=== PATIENT | male | born 1995 | race Caucasian/White ===

== ENCOUNTER 2016-07-06 18:51 | Emergency (ER) | payer MEDICAID ==
[2016-07-06] MEDS ORDERED: AZITHROMYCIN 250 MG TABLET PO STA (19:14)
[2016-07-06] MEDS ORDERED: cefTRIAXone 250 MG VIAL IM STA (19:14)
[2016-07-06] MEDS ORDERED: LIDOCAINE 2% 10 ML MDV ONE (19:15)
[2016-07-06] MEDS ORDERED: cefTRIAXone 250 MG VIAL ONE (19:15)
[2016-07-06] MEDS ORDERED: AZITHROMYCIN 250 MG TABLET PO ONE (19:15)
== END 2016-07-06 19:39 | disposition home or self-care (01) ==
DX: Z20.2 Contact with and (suspected) exposure to infections with a predominantly sexual mode of transmission (principal)
CPT/HCPCS: 81001; 87491; 87591; 96372; 99283; A9270

== ENCOUNTER 2018-04-08 18:15 | Emergency (ER) | payer SELFPAY ==
--- NOTE | 2018-04-08 21:41 | ED Physician Documentation ---
PD HPI BACK PAIN - Stated complaint Stated Complaint: LT LEG NUMBNESS - Chief complaint Chief Complaint: Back Pain - History obtained from History obtained from: Patient - History of Present Illness Timing - onset: How many days ago (2-3) Timing - duration: Days Timing - details: Gradual onset, Still present. No: Abrupt onset Location: Lower, Left Quality: Pain, Other (radiating down left posterolat thigh) Associated symptoms: No: Fever, Weakness, Numbness, Incontinent of urine Improves with: Rest Worsened by: Movement Contributing factors: Twisting. No: Lifting, Trauma Similar symptoms before: Has not had sx before Recently seen: Not recently seen Review of Systems Constitutional: reports: Fever. denies: Chills, Myalgias Nose: denies: Rhinorrhea / runny nose, Congestion Throat: denies: Sore throat Cardiac: denies: Chest pain / pressure Respiratory: denies: Cough GI: denies: Abdominal Pain, Nausea, Vomiting, Diarrhea : denies: Dysuria, Frequency, Hematuria Skin: denies: Rash Musculoskeletal: reports: Back pain. denies: Neck pain PD PAST MEDICAL HISTORY - Past Medical History Cardiovascular: None Neuro: None Musculoskeletal: None - Past Surgical History Past Surgical History: No - Present Medications Home Medications: Ambulatory Orders Medication Instructions Recorded Confirmed Dexamethasone [Decadron] 4 mg PO DAILY #5 tablet 04/08/18 Methocarbamol [Robaxin] 500 mg PO Q6H PRN #30 tablet 04/08/18 Naproxen 500 mg PO BID #20 tablet 04/08/18 Tramadol HCl 50 mg PO Q6H PRN #20 tablet 04/08/18 - Allergies Allergies/Adverse Reactions: Allergies Allergy/AdvReac Type Severity Reaction Status Date / Time No Known Drug Allergies Allergy Verified 04/08/18 18:35 - Social History Does the pt smoke?: No Smoking Status: Never smoker Does the pt drink ETOH?: Yes Does the pt have substance abuse?: No - Immunizations Immunizations are current?: Yes PD ED PE NORMAL - Vitals Vital signs reviewed: Yes - General General: Alert and oriented X 3, Well developed/nourished, Other (guarding ROM of the back.) - Cardiac Cardiac: RRR, No murmur - Respiratory Respiratory: Clear bilaterally - Abdomen Abdomen: Normal bowel sounds, Soft, Non tender, Non distended - Back Back: No CVA TTP, No spinal TTP (but is tender left lateral above the SI joint. No rash nor sores. ) - Derm Derm: Normal color, Warm and dry, No rash - Neuro Neuro: Alert and oriented X 3, No motor deficit, No sensory deficit, Other (normal knee reflexes) Results - Vitals Vitals: Oxygen O2 Source Room air PD MEDICAL DECISION MAKING - ED course Complexity details: considered differential (back pain radiating to left leg, without red flags to suggest need for imaging/testing. ), d/w patient Departure - Departure Disposition: 01 Home, Self Care Clinical Impression: Back pain Qualifiers: Back pain location: low back pain Chronicity: acute Back pain laterality: bilateral Sciatica presence: with sciatica Sciatica laterality: sciatica of left side Qualified Code(s): M54.42 - Lumbago with sciatica, left side Condition: Stable Record reviewed to determine appropriate education?: Yes Instructions: ED Low Back Pain Injury, ED Sciatica Prescriptions: Dexamethasone [Decadron] 4 mg PO DAILY #5 tablet Methocarbamol [Robaxin] 500 mg PO Q6H PRN #30 tablet PRN Reason: Spasms Naproxen 500 mg PO BID #20 tablet Tramadol HCl 50 mg PO Q6H PRN #20 tablet PRN Reason: Pain Comments: Less strenuous activity and heavy lifting if possible for several days. Gentle range of motion and stretching as well as heat to the low back to reduce stiffness after work. Use some anti-inflammatories of naproxen and Decadron as directed. Robaxin muscle relaxant twice daily for stiffness and spasms. Add Tylenol or tramadol if needed for pains. Low back pain with some inflammation or pressure on the nerves is relatively common and typically will resolve over a few weeks or so. It commonly does not resolve in a few days. Recheck if not improved over the next week or 2 however as this should be improvement along the way. Discharge Date/Time: 04/08/18 22:21
[2018-04-08] MEDS ORDERED: CHERRY SYRUP 10 ML UDC PO ONE (22:12)
[2018-04-08] MEDS: DEXAMETHASONE 10 MG/ML VIAL PO STA (22:20)
[2018-04-08] MEDS: NAPROXEN 250 MG TABLET PO STA (22:20)
[2018-04-08] MEDS: METHOCARBAMOL 500 MG TABLET PO STA (22:20)
[2018-04-08] MEDS: traMADol 50 MG TABLET PO STA (22:20)
[2018-04-08 22:21] VITALS: BP 133/76
== END 2018-04-08 22:21 | disposition home or self-care (01) ==
LOC: ED 18:15
DX: M54.42 Lumbago with sciatica, left side (principal)
CPT/HCPCS: 99283

== ENCOUNTER 2018-06-09 08:54 | Emergency (ER) | payer SELFPAY ==
[2018-06-09 09:03] VITALS: BP 143/72
[2018-06-09] MEDS ORDERED: BACITRACIN OINT TOP STA (09:31)
--- NOTE | 2018-06-09 09:34 | ED Physician Documentation ---
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 After about 1 hour he took his foot out of the boot, and washed his foot off with vinegar, followed by water. He worked yesterday in boots, but had to stop early because of discomfort in his foot. He presents now because of continued pain in his right foot. He denies history of similar symptoms in the past. Review of Systems Constitutional: denies: Fever Respiratory: denies: Dyspnea Skin: reports: Other (Chemical méndez on the right foot.) Musculoskeletal: reports: Extremity pain (Right foot.) Neurologic: denies: Focal weakness, Numbness PD PAST MEDICAL HISTORY - Past Medical History Past Medical History: No Cardiovascular: None Neuro: None Endocrine/Autoimmune: None Musculoskeletal: None - Past Surgical History Past Surgical History: No - Allergies Allergies/Adverse Reactions: Allergies Allergy/AdvReac Type Severity Reaction Status Date / Time No Known Drug Allergies Allergy Verified 04/08/18 18:35 - Social History Does the pt smoke?: No Smoking Status: Never smoker Does the pt drink ETOH?: Yes Does the pt have substance abuse?: No - Immunizations Immunizations are current?: Yes - POLST Patient has POLST: No PD ED PE NORMAL - Vitals Vital signs reviewed: Yes (Systolic hypertension initially.) - General General: Alert and oriented X 3, Well developed/nourished - HEENT HEENT: Atraumatic - Respiratory Respiratory: No respiratory distress - Extremities Extremities: Other (There are superficial second-degree méndez on the dorsal aspect of the foot, on the medial side. The largest area is about 2 cm x 1 cm in size. There are scattered smaller burn wounds in the same vicinity. There is no significant erythema or lymphangitic streaking. Distal neurovascular is intact.) - Neuro Neuro: Alert and oriented X 3, No motor deficit, No sensory deficit PD ED PE EXPANDED - Extremities Extremities: Right foot Feet visual: 1 - tenderness (superficial 2 degree méndez) Results - Vitals Vitals: Vital Signs - 24 hr 06/09/18 08:59 Temperature 36.3 C L Heart Rate 80 Respiratory 12 Rate Blood Pressure 143/72 H O2 Saturation 100 Oxygen O2 Source Room air PD MEDICAL DECISION MAKING - ED course Complexity details: considered differential, d/w patient, d/w family ED course: The patient's presentation is most consistent with superficial second-degree chemical burn to his right foot. His presentation does not suggest cellulitis. Treatment in the emergency department included application of antibiotic o intment and gauze dressing. 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 Departure - Departure Disposition: 01 Home, Self Care Clinical Impression: Burn of foot Qualifiers: Encounter type: initial encounter Laterality: right Burn degree: partial thickness (2nd degree) Qualified Code(s): T25.221A - Burn of second degree of right foot, initial encounter Condition: Stable Instructions: ED Burn D 2nd Follow-Up: [facility] [Provider Group] Comments: Keep your right foot elevated as much of the time as possible. Wash it with warm soapy water daily, and apply new antibiotic ointment. You can use ibuprofen, up to 800 mg 3 times daily for its anti-inflammatory effect. Follow-up with primary physician within 2 weeks. Call to schedule appointment. Return to the emergency department if you develop any sign of infection, or otherwise worsening symptoms. Forms: Activity restrictions
== END 2018-06-09 09:50 | disposition home or self-care (01) ==
LOC: ED 08:54
DX: T65.891A Toxic effect of other specified substances, accidental (unintentional), initial encounter (principal); T25.621A Corrosion of second degree of right foot, initial encounter; T32.0 Corrosions involving less than 10% of body surface
CPT/HCPCS: 99282; 99283; A9270

== ENCOUNTER 2021-08-23 10:05 | Emergency (ER) | payer SELFPAY ==
[2021-08-23 10:28] LABS: BILIRUBIN,URINE NEGATIVE (NEGATIVE); GLUCOSE, URINE (UA) NEGATIVE (NEGATIVE); KETONES,URINE (UA) NEGATIVE (NEGATIVE); LEUKOCYTE ESTERASE, URINE NEGATIVE (NEGATIVE); NITRITE,URINE NEGATIVE (NEGATIVE); OCCULT BLOOD,URINE NEGATIVE (NEGATIVE); PROTEIN,URINE NEGATIVE (NEGATIVE); UROBILINOGEN,URINE 0.2 (NORMAL) E.U./dL (NORMAL)
[2021-08-23 10:32] LABS: CLARITY,URINE CLEAR (CLEAR)
--- NOTE | 2021-08-23 11:59 | ED Physician Documentation ---
History of Present Illness - Stated complaint Stated Complaint: MALE ,BACK PX - Chief complaint Chief Complaint: UTI - History obtained from History obtained from: Patient - Additonal information Additional information: Patient comes emergency department chief complaint of low back pain after moving a heavy couch a few days ago. The patient states he is just been having a lot of muscular tightness and that it radiates into his left sciatic area. He denies any numbness or tingling. No weakness of his lower extremities. No difficulty controlling bowels or bladder. No dysuria or fevers. The patient as a separate complaint relates penile itching and rash at the tip. He does admit to having unprotected sex 2 nights ago. He is not sure if his partner had any STD symptoms. The patient denies any penile discharge. No lesions. No history of STDs. No other complaints at this time. Review of Systems Ten Systems: 10 systems reviewed and negative Constitutional: reports: Reviewed and negative Eyes: reports: Reviewed and negative Ears: reports: Reviewed and negative Nose: reports: Reviewed and negative Throat: reports: Reviewed and negative Cardiac: reports: Reviewed and negative Respiratory: reports: Reviewed and negative GI: reports: Reviewed and negative : reports: Reviewed and negative Skin: reports: Reviewed and negative Musculoskeletal: reports: Back pain Neurologic: reports: Reviewed and negative Psychiatric: reports: Reviewed and negative Endocrine: reports: Reviewed and negative Immunocompromised: reports: Reviewed and negative PD PAST MEDICAL HISTORY - Past Medical History Cardiovascular: None Respiratory: None Neuro: None Endocrine/Autoimmune: None GI: None : None HEENT: None Psych: None Musculoskeletal: None Derm: None - Past Surgical History Past Surgical History: No - Present Medications Home Medications: Ambulatory Orders Medication Instructions Recorded Confirmed Cyclobenzaprine [Flexeril] 10 mg PO TID PRN #20 tablet 08/23/21 - Allergies Allergies/Adverse Reactions: Allergies Allergy/AdvReac Type Severity Reaction Status Date / Time No Known Drug Allergies Allergy Verified 08/23/21 10:31 - Social History Does the pt smoke?: Yes Smoking Status: Current every day smoker Does the pt drink ETOH?: Yes ETOH Use: Beer, Liquor Does the pt have substance abuse?: Yes Substance Use and Type: Marijuana - Immunizations Immunizations are current?: Yes - POLST Patient has POLST: No PD ED PE NORMAL - Vitals Vital signs reviewed: Yes - General General: Alert and oriented X 3, No acute distress, Well developed/nourished - HEENT HEENT: Atraumatic, PERRL, EOMI, Moist mucous membranes - Neck Neck: Supple, no meningeal sign - Cardiac Cardiac: RRR, No murmur, Strong equal pulses - Respiratory Respiratory: No respiratory distress, Clear bilaterally - Abdomen Abdomen: Soft, Non tender, Non distended - Male Male : Other (No penile lesions. The skin of the glans and shaft appears normal. No erythema or rash. No urethral discharge. No masses. No lymphadenopathy.) - Back Back: No spinal TTP - Derm Derm: Normal color, Warm and dry, No rash - Extremities Extremities: No deformity, No edema - Neuro Neuro: Alert and oriented X 3, rn medical surgical 2-12 intact, Normal speech - Psych Psych: Normal mood, Normal affect Results - Vitals Vitals: Oxygen O2 Source Room air - Labs Labs: Laboratory Tests 08/23/21 08/23/21 10:11 10:11 Urine Color LT. YELLOW Urine Clarity CLEAR Urine pH 6.0 Ur Specific [place] <=1.005 Urine Protein NEGATIVE Urine Glucose (UA) NEGATIVE Urine Ketones NEGATIVE Urine Occult Blood NEGATIVE Urine Nitrite NEGATIVE Urine Bilirubin NEGATIVE Urine Urobilinogen 0.2 (NORMAL) Ur Leukocyte Esterase NEGATIVE Ur Microscopic Review NOT INDICATED Urine Culture Comments NOT INDICATED Chlam trachomat DNA PCR NEGATIVE N.gonorrhoeae DNA (PCR) NEGATIVE T. vaginalis (PCR) TNP PD MEDICAL DECISION MAKING - ED course Complexity details: considered differential, d/w patient ED course: Patient was treated symptomatically in the emergency department. A urethral swab was obtained to evaluate for STIs. This is pending and patient has been advised that if the test comes back for anything infection downing, he will be notified at home. We have discussed the usual indications for return Departure - Departure Disposition: 01 Home, Self Care Clinical Impression: Penile irritation Low back strain Qualifiers: Encounter type: initial encounter Qualified Code(s): S39.012A - Strain of muscle, fascia and tendon of lower back, initial encounter Instructions: ED Sprain Strain Lumbar Prescriptions: Cyclobenzaprine [Flexeril] 10 mg PO TID PRN #20 tablet PRN Reason: Spasms Comments: You have most likely strained the musculature of your back. This will get better on its own generally, given time. However, if you do not feel better in the next couple of weeks, you should follow-up with your primary doctor to discuss whether MRI would be appropriate. In the meantime, you may take ibuprofen and Tylenol as needed, as well as the muscle relaxer. Please avoid any heavy work with your back until it is feeling better without medication. Discharge Date/Time: 08/23/21 12:05
[2021-08-23 12:05] VITALS: BP 125/65
[2021-08-23 23:00] LABS: CHLAMYDIA TRACHOMATIS DNA NEGATIVE (NEGATIVE); NEISSERIA GONORRHOEAE DNA NEGATIVE (NEGATIVE)
== END 2021-08-23 12:05 | disposition home or self-care (01) ==
LOC: ED 10:05
DX: N48.89 Other specified disorders of penis (principal); S39.012A Strain of muscle, fascia and tendon of lower back, initial encounter; X50.0XXA Overexertion from strenuous movement or load, initial encounter; Y93.89 Activity, other specified; F17.200 Nicotine dependence, unspecified, uncomplicated
CPT/HCPCS: 81001; 81003; 87086; 87491; 87591; 87661; 99282; 99283

== ENCOUNTER 2022-01-09 02:40 | Outpatient (CLI) | payer SELFPAY | END 2022-01-09 02:41 | disposition EMS.NT | LOC: EMS 02:40 | DX: S00.81XA Abrasion of other part of head, initial encounter (principal); M79.644 Pain in right finger(s); V89.2XXA Person injured in unspecified motor-vehicle accident, traffic, initial encounter; Y93.89 Activity, other specified; Y92.488 Other paved roadways as the place of occurrence of the external cause ==